=== PATIENT | female | born 1995 | race Caucasian/White ===

== ENCOUNTER 2022-08-31 16:30 | Emergency (ER) | payer OTHER ==
[2022-08-31] MEDS ORDERED: Ketorolac 30 MG/ML SDV IM ONE (16:48)
[2022-08-31] MEDS ORDERED: Ondansetron 4 MG Tab.DIS PO ONE (16:48)
[2022-08-31] MEDS ORDERED: Take Home: Ondansetron 4 MG Tab.DIS, 5 Tab Pack PO ONE (16:48)
== END 2022-08-31 17:14 | disposition home or self-care (01) ==
LOC: VM.ED 16:30
DX: G43.909 Migraine, unspecified, not intractable, without status migrainosus (principal)
CPT/HCPCS: 96372; 99283; A9270-GY; J1885; Q0162